=== PATIENT | male | born 1980 | race Two or more races ===

== ENCOUNTER → 2025-05-27 | Emergency (ER) | payer MEDICAID ==
[~2025-05-27] VITALS: Ht 162.6 cm; Wt 95.0 kg
[~2025-05-27] MED LIST: IBUP-1455 MT
[2025-05-27 15:58] VITALS: O2SAT 96
[2025-05-27] MEDS: IBUPROFEN 600MG TABLET PO ONE (19:37)
[2025-05-27 19:57] VITALS: BP 152/98; PULSE 90; RESP 16; TEMP 36.7; O2SAT 97
== END ==
LOC: ER 15:50
DX: M25.562 Pain in left knee (principal); M25.561 Pain in right knee
CPT/HCPCS: 73560; 99283